=== PATIENT | female | born 1990 | race Caucasian/White ===

== ENCOUNTER 2021-10-30 11:09 | Emergency (ER) | payer OTHER ==
[~2021-10-30] VITALS: Ht 180.3 cm; Wt 83.3 kg
[2021-10-30 11:32] VITALS: BP 128/67
[2021-10-30] MEDS ORDERED: AZEL137S3 NS (12:14)
[2021-10-30] MEDS ORDERED: METO10TA81 PO (12:14)
--- NOTE | 2021-10-30 12:14 | PHYS DOC ---
Past History Past Surgical History: No Surgical History Alcohol Use: None General Adult EDM: Chief Complaint: DIZZY/LIGHT HEADED HPI: HPI: Patient is a 30-year-old female coming in for dizziness. Patient states she has a stabbing sensation where she tries to get up. Patient states that when she is still sensation completely goes away. States for the past week she has had an upper respiratory tract infection and feels like there is fullness in her ear. She denies any pain, hearing loss, or tinnitus. Patient has not had similar symptoms in the past. Denies any blurred vision, headache, neck pain or stiffness, fevers. She is currently breast-feeding. Review of Systems: Review of Systems: All other systems within normal limits except for as noted in the HPI Allergies: Allergies: Allergies Coded Allergies Type Severity Reaction Last Updated Verified No Known Drug Allergies 10/30/21 No Physical Exam: PE: Constitutional: Well developed, well nourished, no acute distress, non-toxic appearance. [] HENT: Normocephalic, atraumatic, bilateral external ears normal, nose normal. Ear canals and TMs not erythematous. Retracted TM on the left. No mastoid tenderness [] Eyes: PERRLA, conjunctiva normal, no discharge. Extraocular movements intact. Unilateral nystagmus with Archie-Hallpike maneuver Neck: No rigidity, supple, no stridor. [] Cardiovascular: Regular rate and rhythm, brisk cap refill [] Lungs & Thorax: Non labored symmetric respirations, no tachypnea or respiratory distress [] Abdomen: Soft, nondistended. Skin: Warm, dry, no erythema, no rash. [] Back: Unremarkable Extremities: No deformities, range of motion grossly intact, no lower extremity edema [] Neurologic: Alert and oriented X 3, no focal deficits noted. [] Psychologic: Affect normal, judgement normal, mood normal. [] Current Patient Data: Vital Signs: Vital Signs Date Time Temp Pulse Resp B/P (MAP) Pulse Ox O2 Delivery O2 Flow Rate FiO2 10/30/21 11:32 98.9 60 16 128/67 (87) 99 Room Air EKG: EKG: [] Radiology/Procedures: Radiology/Procedures: [] Heart Score: C/O Chest Pain: No Risk Factors: Risk Factors: DM, Current or recent (<one month) smoker, HTN, HLP, family history of CAD, obesity. Risk Scores: Score 0 - 3: 2.5% MACE over next 6 weeks - Discharge Home Score 4 - 6: 20.3% MACE over next 6 weeks - Admit for Clinical Observation Score 7 - 10: 72.7% MACE over next 6 weeks - Early Invasive Strategies Course & Med Decision Making: Course & Med Decision Making Patient without serious risk factors and recent illness. Discussed return precautions and symptomatic treatment. Dragon Disclaimer: Geovani Disclaimer: This electronic medical record was generated, in whole or in part, using a voice recognition dictation system. Departure Departure: Impression: Primary Impression: Vertigo Disposition: HOME / SELF CARE / HOMELESS Condition: STABLE Referrals: JOHANNY PASCUAL (PCP) Patient Instructions: Benign Positional Vertigo Scripts Azelastine Hcl (AZELASTINE HCL) 137 Mcg/0.137 Ml [place].pump 2 SPR NS BID PRN for CONGESTION for 30 Days, #30 ML 0 Refills Prov: FRANCISCO ANGUIANO MD 10/30/21 Metoclopramide Hcl (REGLAN) 10 Mg Tablet 1 TAB PO TID PRN for DIZZINESS for 7 Days, #21 TAB 0 Refills before food and bedtime Prov: FRANCISCO ANGUIANO MD 10/30/21 FRANCISCO ANGUIANO MD Oct 30, 2021 12:14
[2021-10-30] MEDS ORDERED: METOCLOPRAMIDE HCL 10 MG/2 ML VIAL. IM ONE (12:15)
== END 2021-10-30 12:31 | disposition home or self-care (01) ==
LOC: ER 11:09
DX: R42 Dizziness and giddiness (principal)
CPT/HCPCS: 96372; 99283; J2765